=== PATIENT | female | born 1960 | race Caucasian/White ===

== ENCOUNTER 2020-05-09 07:15 | Observation (INO) | payer OTHER ==
[2020-05-07 12:00] LABS: APPEARANCE,URINE CLEAR; COLOR,URINE PALE YELLOW; KETONES,URINE NEGATIVE (NEGATIVE); PH,URINE 5 (4.5-8.0); PROTEIN,URINE NEGATIVE (NEGATIVE)
[2020-05-07 12:01] LABS: BASOPHILS % (AUTO) 0.7 % (0.0-2.0); BILIRUBIN, URINE NEGATIVE (NEGATIVE); EOSINOPHILS % (AUTO) 0.8 % (0.0-3.0); GLUCOSE, URINE (UA) NEGATIVE (NEGATIVE); HEMATOCRIT 47.3 % (37.0-47.0); HEMOGLOBIN 15.8 G/DL (12.0-16.0); LEUKOCYTE ESTERASE ,URINE 1+ (NEGATIVE); LYMPHOCYTES % (AUTO) 23.6 % (20.0-45.0); MEAN CORPUSCULAR VOLUME 98 FL (80-99); MONOCYTES % (AUTO) 8.6 % (1.0-10.0); NEUTROPHILS % (AUTO) 66.3 % (45.0-75.0); NITRITE,URINE NEGATIVE (NEGATIVE); PLATELET COUNT 277 K/UL (150-450); RED BLOOD COUNT 4.85 M/UL (4.20-5.40); RED CELL DISTRIBUTION WIDTH 11.3 % (11.6-14.8); UROBILINOGEN,URINE NORMAL MG/DL (0.0-1.0); WHITE BLOOD COUNT 6.6 K/UL (4.8-10.8)
[2020-05-07 12:08] LABS: ALANINE AMINOTRANSFERASE 32 U/L (12-78); ALBUMIN 4.2 G/DL (3.4-5.0); ALBUMIN/GLOBULIN RATIO 1.2 (1.0-2.7); ALKALINE PHOSPHATASE 46 U/L (46-116); ANION GAP 9 mmol/L (5-15); ASPARTATE AMINO TRANSFERASE 25 U/L (15-37); BILIRUBIN,TOTAL 0.9 MG/DL (0.2-1.0); BLOOD UREA NITROGEN 14 mg/dL (7-18); CALCIUM 9.6 MG/DL (8.5-10.1); CARBON DIOXIDE 29 MMOL/L (21-32); CHLORIDE 102 MMOL/L (98-107); CREATININE 1.1 MG/DL (0.55-1.30); POTASSIUM 4.1 MMOL/L (3.5-5.1); SODIUM 140 MMOL/L (136-145)
--- NOTE | 2020-05-08 14:45 | Pre-op HX & Phy Repo 2 SIG ---
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 The patient developed ulcerative colitis in her early 20s in 1984. In 2003, she suffered colon perforation during colonoscopy and underwent total colectomy with subsequent creation of an ileoanal J-pouch. She had continuing difficulties with her J-pouch and in 2010 underwent resection of the J-pouch with abdominoperineal proctectomy and creation of a Alamo type of Kock pouch continent ileostomy. She has overall done well with occasional pouchitis treated with Cipro or clindamycin orally. She has had revisions for stenosis and stricture of the stoma, most recently September 2015. The patient had an episode of small bowel obstruction in June 2019 after eating mushrooms. She took some mineral oil orally and it passed. She underwent a CT scan July 13, 2019, which was negative but she had no symptoms at that time. She has since had at least three additional episodes after eating foods with roughage and high fiber. She underwent a pouchogram with retrograde small bowel series x-ray at home in [place], which I reviewed and while there was concern of a stricture at the junction of the afferent bowel and the Alamo continent ileostomy pouch, we could not clearly visualize that area on the imaging. The patient is scheduled to undergo a Alamo pouch endoscopy with possible balloon dilatation of intestinal stricture to be performed by [facility], Dr. Nehemias Ferrer. PAST MEDICAL HISTORY: MEDICATIONS: Hormone replacement (buttock implant and IUD) ALLERGIES: None, although she does not tolerate oral Flagyl. REVIEW OF SYSTEMS: 3, para 3. PHYSICAL EXAMINATION: VITAL SIGNS: The patient is 5 feet 9 inches, approximately 140 pounds. [place] and will be examined upon arrival and dictated separately. IMPRESSION: 1. Recurring episodes of small bowel obstruction with possible stricture at Alamo continent ileostomy. 2. History of ulcerative colitis. 3. STATUS POST MULTIPLE ABDOMINAL OPERATIONS: 3.1. Excision of ovarian cyst in 1979. 3.2. Total colectomy with Kat ileostomy due to colon perforation 2003 3.3. Creation of ileoanal J-pouch with temporary loop ileostomy 2004. 3.4. Closure of loop ileostomy 2004. 3.5. Resection of failed J-pouch with abdominoperineal proctectomy and creation of a Alamo continent ileostomy January 2011. 3.6. Revision of stoma stenosis of Alamo continent ileostomy February 2012 3.7. Revision of Alamo continent ileostomy stoma stenosis in September 2015 DISCUSSION: I have had a full discussion with the patient regarding the nature of her condition, the nature of the pouch endoscopy including the primary endoscopist, Dr. Nehemias Ferrer because of his expertise as a long-time maintenance helper and I have discussed with her that if balloon dilatation could not be accomplished, but stricture is definitely confirmed that she will need surgical revision to prevent future episodes of bowel obstruction, partial or complete. Josue Kilpatrick M.D. DR: Ruben JOB#: [id number] CC: MONICA
[2020-05-09] VITALS (8 sets, daily range): BP systolic 102–125; BP diastolic 58–75
[~2020-05-09] VITALS: Ht 170.2 cm; Wt 86.6 kg
[~2020-05-09 07:15] MED LIST: NKM; PROBIOTIC1 EAC5 PO; hormone pellets IMPLANT
--- NOTE | 2020-05-09 08:15 | Pre-Procedure Note/Attestation ---
Pre-Procedure Note/Attestation Complete Prior to Procedure Planned Procedure: not applicable Procedure Narrative: Cally continent ileostomy pouch endoscopy with possible balloon dilation of afferent bowel stricture Indications for Procedure Pre-Operative Diagnosis: recurring small bowel obstruction, possible stricture on Pouchogram XRay Attestation I attest that I discussed the nature of the procedure; its benefits; risks and complications; and alternatives (and the risks and benefits of such alternatives ), prior to the procedure, with the patient (or the patient's legal inside account representative). I attest that, if there was a reasonable possibility of needing a blood transfusion, the patient (or the patient's legal inside account representative) was given the [place] Department of Health Services standardized written summary, pursuant to the Phani Sundeep Blood Safety Act ([place] Health and Safety Code # 1645, as amended). I attest that I re-evaluated the patient just prior to the surgery and that there has been no change in the patient's H&P, except as documented below:none Josue Kilpatrick MD May 09, 2020 08:15
--- NOTE | 2020-05-09 08:52 | Pre-Procedure Note/Attestation ---
Pre-Procedure Note/Attestation Complete Prior to Procedure Planned Procedure: not applicable Procedure Narrative: pouchoscopy Indications for Procedure Pre-Operative Diagnosis: ? stricture Attestation I attest that I discussed the nature of the procedure; its benefits; risks and complications; and alternatives (and the risks and benefits of such alternatives ), prior to the procedure, with the patient (or the patient's legal leather goods sales representative). I attest that, if there was a reasonable possibility of needing a blood transfusion, the patient (or the patient's legal leather goods sales representative) was given the [facility] standardized written summary, pursuant to the Phani Sundeep Blood Safety Act ([place] Health and Safety Code # 1645, as amended). I attest that I re-evaluated the patient just prior to the surgery and that there has been no change in the patient's H&P, except as documented below: Nehemias Ferrer MD May 09, 2020 08:52
[2020-05-09] MEDS ORDERED: Lidocaine 1% MPF 10mg/ml 5ml ONE (09:00)
[2020-05-09] MEDS ORDERED: LR 1000ml ONE (09:00)
--- NOTE | 2020-05-09 09:28 | Endoscopy Procedure Note ---
Endoscopy Procedure Note General Indication for Procedure: stricture Procedures Performed: other - pouchoscopy Operative Findings/Diagnosis: same Specimen: none Pt Tolerated Procedure Well: Yes Estimated Blood Loss: none Anesthesia Anesthesiologist: mik Anesthesia: MAC Inserted Devices Implant(s) used?: No GI Core Measures 50 yrs or older w/o bx or poly: Not Applicable 10yrs. F/U recommended: Not Applicable Nehemias Ferrer MD May 09, 2020 09:28
--- NOTE | 2020-05-09 09:29 | Immediate Post-Op Evaluation ---
Immediate Post-Op Evalulation Immediate Post-Op Evalulation Procedure: pouch endoscopy Date of Evaluation: May 09, 2020 Time of Evaluation: 09:29 Blood Pressure Systolic: 125 Blood Pressure Diastolic: 56 Pulse Rate: 74 Respiratory Rate: 14 O2 Sat by Pulse Oximetry: 99 Temperature (Fahrenheit): 98.7 Nausea: No Vomiting: No Complications none Patient Status: awake, reacts, patent Hydration Status: adequate Drug: none AnairiMalu bauer CRNA May 09, 2020 09:29
--- NOTE | 2020-05-09 09:31 | Anethesia Preoperative Eval ---
Anesthesia Pre-op PMH/ROS General Date of Evaluation: May 09, 2020 Time of Evaluation: 08:53 Anesthesiologist: oksana ASA Score: ASA 2 Mallampati Score Class I : Soft palate, uvula, fauces, pillars visible Class II: Soft palate, uvula, fauces visible Class III: Soft palate, base of uvula visible Class IV: Only hard plate visible Mallampati Classification: Class II Surgeon: troy Diagnosis: pouch malfunction Surgical Procedure: endo pouch endoscopy Family History: no anesthesia problems Allergies: Coded Allergies: CODEINE (Verified Allergy, Mild, 02/05/11) Medications: see eMAR Patient NPO?: Yes NPO Date: May 09, 2020 NPO Time: 00:01 Past Medical History Cardiovascular: Denies: HTN, CAD, [place], valve dz, arrhythmia, other Pulmonary: Denies: asthma, COPD, DEISY, other Gastrointestinal/Genitourinary: Reports: GERD, other - u/colitis; Denies: CRI, ESRD Neurologic/Psychiatric: Denies: dementia, CVA, depression/anxiety, TIA, other Endocrine: Denies: DM, hypothyroidism, steroids, other HEENT: Denies: cataract (L), cataract (R), glaucoma, KLETSEL DEHE WINTUN (L), KLETSEL DEHE WINTUN (R), other Musculoskeletal/Integumentary: Denies: OA, RA, DJD, DDD, edema, other PSxH Narrative: colectomy, endopouch endoscopy Anesthesia Pre-op Phys. Exam Physician Exam Last Vital Signs Date Time Temp Pulse Resp B/P (MAP) Pulse Ox O2 Delivery O2 Flow Rate FiO2 05/09/20 08:14 Room Air 05/09/20 07:53 98.0 74 18 122/70 99 Constitutional: NAD Neurologic: CN 2-12 intact Cardiovascular: RRR Respiratory: CTA Gastrointestinal: S/NT/ND Airway Exam Mallampati Classification 2 Mallampati Score: Class II ROM: full Anesthesia Pre-op A/P Studies Pre-op Studies: EKG - sr Risk Assessment & Plan Assessment: covid neg Plan: mac Status Change Before Surgery: No Pre-Antibiotics Drug: none Malu Jalloh CRNA May 09, 2020 09:31
--- NOTE | 2020-05-09 09:32 | General Progress Note ---
Progress Note Progress Note H&P dictated. Recurring episodes of small bowel obstruction with fibrous foods, history total colectomy and Alamo continent ileostomy pouch. Abdomen soft, flat, small stoma of Alamo continent ileostomy pouch, but adequate for 30Fr catheter. No herniae Alamo Pouch endoscopy performed by Dr. Ferrer: pouch and valve normal, could not identify afferent bowel-pouch anastomosis opening Imp: R/O stricture or kink from adhesions at or near junction of ileum and Alamo continent ileostomy pouch Plan: Indwelling pouch catheter to continuous drainage NPO, IV fluids STAT Pouchogram XRay with retrograde small bowel series May need CT enterography or laparotomy Josue Kilpatrick MD May 09, 2020 09:32
[2020-05-09] MEDS ORDERED: D5 1/2NS w/KCl 20mEq 1,000 ML IV SCH (10:00)
--- NOTE | 2020-05-09 10:10 | NUR ---
NURSE NOTES: Received patient from surgery and report from MARI Liang. Pt underwent Alamo Pouch Endoscopy and under observation. Pt awake, alert and orientedx4, able to make needs known. Pt in RA, No acute distress noted, Denied any pain at this time. VSS. All belongings were accounted for. IV on Rt. AC intact and patent. Noted Ileo at RLQ connected to drainage bag draining brown liquid stool. Dressing C/D/I. Oriented pt to the room. Discussed plan of care. Bed in low position and locked. Siderails upx2. Call light within reach. Will continue to monitor.
--- NOTE | 2020-05-09 10:12 | 48 Hour Post Anesthesia Eval ---
Post Anesthesia Evaluation Procedure: pouch endoscopy Date of Evaluation: May 09, 2020 Time of Evaluation: 10:11 Blood Pressure Systolic: 116 0: 69 Pulse Rate: 74 Respiratory Rate: 14 O2 Sat by Pulse Oximetry: 98 Nausea: No Vomiting: No Hydration Status: adequate Cardiopulmonary Status: stable Mental Status/LOC: patient returned to baseline Post-Anesthesia Complications: none Follow-up care needed: N/A Malu Jalloh CRNA May 09, 2020 10:12
--- NOTE | 2020-05-09 10:45 | Procedure Note ---
DATE OF PROCEDURE: 05/09/2020 SURGEON: Nehemias Ferrer MD. REFERRING PHYSICIAN: Josue Kilpatrick MD. PROCEDURE: Pouchoscopy. ANESTHESIA: Per FINANCIAL CONSULTANT, Malu Tarrillion. INSTRUMENT: Olympus pediatric upper scope. INDICATION: Possible stricture. REASON FOR PROCEDURE: The procedure, risks, benefits, and possible consequences, including hemorrhage, aspiration, perforation and infection, and alternative treatments, were explained to the patient/legal guardian by Dr. Nehemias Ferrer and the patient/legal guardian understood and accepted these risks. PROCEDURE IN DETAIL: After informed consent was obtained and the patient was adequately sedated, pediatric upper scope was advanced into the pouch. We spent a good almost 20 minutes trying to find the afferent loop, but we could not find the afferent loop. There was some bilious material in the pouch which we cleaned and washed. We were able to see the valve clearly which looked normal. There was no evidence of any ulceration. No active bleeding. There were few folds of the mucosa in the pouch. No evidence of any active pouchitis. Again, we spent a lot of time trying to look an afferent loop, but we were not. At this time, the procedure was terminated. The patient tolerated the procedure very well without any complications. SUMMARY OF FINDINGS: 1. Unable to find an afferent loop. 2. Otherwise normal pouch with a normal valve. RECOMMENDATIONS: Discussed with the surgeon. Plan to do a pouchogram today to see if they can advance the contrast from the pouch into the proximal small intestine. I want to thank Dr. Josue Kilpatrick for this kind referral. Nehemias Ferrer M.D. DR: BARB JOB#: [id number] CC:
--- NOTE | 2020-05-09 14:30 | NUR ---
NURSE NOTES: Pt off the unit for Pouchogram with stable condition.
--- NOTE | 2020-05-09 15:10 | NUR ---
NURSE NOTES: Pt came back from procedure. Pt in stable condition.
--- NOTE | 2020-05-09 16:22 | Diagnostic Imaging Report ---
INDICATION: Abdominal pain, history of continent ileostomy TECHNIQUE: Intraoperative imaging Fluoroscopy time: 87.2 seconds Total dose: 0.73328 mGym2 Total number of images: 22 COMPARISON: None FINDINGS: There is brisk the grass of contrast from the continent ileostomy into the afferent small bowel. Afferent small bowel is nonetheless somewhat dilated. Aponte catheter is seated well within the pouch. At the end of the procedure, the pouch was drained. Images obtained demonstrate partial decompression of the pouch and the distal small bowel. IMPRESSION: No evidence of obstruction of the distal anastomosis of the small bowel with the continent ileostomy pouch.
--- NOTE | 2020-05-09 19:53 | NUR ---
NURSE HAND-OFF: Important Events on Shift: Patient Status: Stable Diet: BCIR Pending Orders: n Pending Results/Labs:n Pending MD notification:n Latest Vital Signs: Temperature 98.2 , Pulse 68 , B/P 108 /60 , Respiratory Rate 18 , O2 SAT 97 , Room Air, O2 Flow Rate . Vital Sign Comment: stable Latest Moise Fall Score: 35 Fall Risk: Medium Risk Safety Measures: Call light , Bed Alarm Zone 1, Side Rails Side Rails x2, Bed position Low and Locked. Fall Precautions: N Report given to MARI Hamilton.
--- NOTE | 2020-05-09 20:01 | NUR ---
nurse's notes: received patient awake, alert and oriented; denies pain, in no apparent distress; VSS; afebrile; ileostomy to the right lower quadrant of the abdomen; dressing clean, dry and intact; draining yellow-greenish watery output, no odor. requesting for a sleeping pill (ativan); call back received with new orders. patient requesting not to be disturbed at NE for vitals; education given regarding importance of VS; patient understood teaching but would want to get some sleep tonight; respected patient's right to refuse but agreeable to the 0400 VS; plan of care discussed with patient who verbalized agreement and understanding.
[2020-05-09] MEDS ORDERED: LORazepam 0.5mg tab ORAL PRN (20:15)
[2020-05-10 04:00] VITALS: BP 114/67
--- NOTE | 2020-05-10 06:17 | NUR ---
nurse's notes: no significant changes noted this shift. no c/o pain or any distress. VSS; afebrile. NS flushing done as ordered; adequate ileostomy output noted. however, as of this time, patient has only voided x 1 with 100 ml UOP as she has been asleep since taking ativan last night. will try to encourage her to void prior to end of this shift.
--- NOTE | 2020-05-10 06:24 | NUR ---
NURSE HAND-OFF: Important Events on Shift: patient has only voided x 1 this shift; still asleep at this time; total HYB=120; true ileo [id number] Patient Status: stable, in no apparent distress Diet: BCIR low residue; tolerating Pending Orders: none Pending Results/Labs:none Pending MD notification:none Latest Vital Signs: Temperature 98.1 , Pulse 63 , B/P 114 /67 , Respiratory Rate 17 , O2 SAT 99 , Room Air, O2 Flow Rate . Vital Sign Comment: stable, afebrile Latest Moise Fall Score: 35 Fall Risk: Medium Risk Safety Measures: Call light , Bed Alarm Zone 1, Side Rails Side Rails x2, Bed position Low and Locked. Fall Precautions: yes Patient Fall Education: given Report given to
--- NOTE | 2020-05-10 07:09 | NUR ---
NURSE NOTES: Report received from Joy GUERRA, rounds made. Patient AOx4 calm, respirations even/unlabored on RA. Denies pain, NV. Tolerating BCIR diet at this time. RAC saline lock, site asymptomatic. Encouraged po fluid intake, denies dizziness or SOB. RLQ BCIR catheter in place, drainage bag em Addendum: 05/10/20 at 0921 by Darcie Nj RN Drainage bag emtpy, to gravity. Call light in reach, bed in lowest position, will continue to monitor.
--- NOTE | 2020-05-10 07:28 | NUR ---
nurse's notes: patient now awake, eating breakfast; still has not voided; encouraged to urinate, increase fluid intake. patient verbalized understanding.
[2020-05-10 08:00] VITALS: BP 95/76
--- NOTE | 2020-05-10 08:44 | General Progress Note ---
Progress Note Progress Note AVRUBENS doing well Weighs 128 pounds - usually 135 Pouch endoscopy: unable to locate afferent bowel orifice to Alamo pouch Pouchogram XRay: no stricture evident Imp: Recurring episodes of small bowel obstruction with normal Alamo continent ileostomy pouch Potential causes: missed stricture on XRay and endoscopy unsuccessful adhesion with angulation of the bowel internal hernia with intermittent SBO Plan; strict BCIR diet f/u closely If she has additional episodes will need to undergo exploratory laparotomy Full discussion with patient Plan: Discharge f/u 1 week and prn Josue Kilpatrick MD May 10, 2020 08:44
--- NOTE | 2020-05-10 11:00 | NUR ---
NURSE NOTES: BCIR catheter discontinued at 0945 AM, patient has self intubation catheter supplies. Patient intubated without difficulty, 1000 ml output via BCIR ileostomy. Voiding without difficulty. Will continue to monitor.
[2020-05-10 12:00] VITALS: BP 102/78
--- NOTE | 2020-05-10 13:06 | NUR ---
NURSE NOTES: Discharge instructions reviewed with patient, verbalized understanding. All belongings and discharge instructions given to patient. RAC saline lock discontinued this AM, no active bleeding. RLQ ileostomy with 4x4 dressing [address]. [facility], in stable condition. Discharged home at 1306.
[2020-05-10] MEDS ORDERED: NS Irrig 1000ml ONE (13:12)
--- NOTE | 2020-05-10 15:31 | NUR ---
*-* INSURANCE *-* UPDATED CLINICALS AND REVIEWS HAVE BEEN FAXED TO: [facility] [employer] M[employer]AN TRACKING#[id number] PT DISCHARGED 05/10/2020 NO AUTH NEEDED FOR OBS
--- NOTE | 2020-05-10 16:53 | NUR ---
CASE MANAGEMENT:INITIAL REVIEW 59YR OLD MALE HERE FOR SCHEDULED SURGERY CC:RECURRING SBO; POSSIBLE STRICTURE ON POUCHOGRAM SI:CANDELARIA CONTINENT ILEOSTOMY POUCH MALFUNCTION 98.5 76 18 102/78 97% ON RA IS:IN SURGERY FOR Candelaria continent ileostomy pouch endoscopy with possible balloon dilation of afferent bowel stricture \: 3E MED SURG UNIT DCP:HOME WHEN STABLE PLAN: POUCHOGRAM POUCH ENDOSCOPY
== END 2020-05-10 13:13 | disposition home or self-care (01) ==
LOC: GAS 07:15 → 3E 11:02
DX: K94.13 Enterostomy malfunction (principal); Z87.19 Personal history of other diseases of the digestive system; K21.9 Gastro-esophageal reflux disease without esophagitis; Z90.49 Acquired absence of other specified parts of digestive tract; Z88.6 Allergy status to analgesic agent
CPT/HCPCS: 36415; 44380; 74270; 76000; 80053; 81001; 85025; 85610; 85730; 93005; 94003; G0378; J2704; J7120; Q9963; U0002; 94150